=== PATIENT | female | born 1990 | race African-American/Black ===

== ENCOUNTER 2017-12-26 14:34 | Emergency (ER) | payer MEDICAID ==
[2015-09-26 12:37] VITALS: BMI 34.3
[~2017-12-26 14:34] MED LIST: HYDROCODONE-APA1 TAB PO; IBUPROFEN600 MG PO; PRENATAL COMPLE1 TAB PO
[2017-12-26 15:52] LABS: APPEARANCE HAZY (CLEAR); BILIRUBIN NEGATIVE (NEGATIVE); COLOR AMBER (YELLOW); GLUCOSE NEGATIVE (NEGATIVE); KETONE NEGATIVE (NEGATIVE); NITRITE NEGATIVE (NEGATIVE); PROTEIN NEGATIVE (NEGATIVE); SPECIFIC GRAVITY 1.015 (1.005-1.020); UROBILINOGEN NORMAL (NORMAL)
[2017-12-26 15:53] LABS: HCG URINE POSITIVE (NEGATIVE)
== END 2017-12-26 18:15 | disposition home or self-care (01) ==
LOC: D.ER 14:34
PROVIDERS: Family Medicine
DX: O26.891 Other specified pregnancy related conditions, first trimester (principal); Z3A.01 Less than 8 weeks gestation of pregnancy; R42 Dizziness and giddiness; F17.200 Nicotine dependence, unspecified, uncomplicated

== ENCOUNTER 2018-01-20 10:50 | Emergency (ER) | payer MEDICAID ==
[2015-09-26 12:37] VITALS: BMI 34.3
[2018-01-20 11:42] LABS: BASOPHILS 0.1 % (0-2); EOSINOPHILS 0.3 % (0-7); HEMATOCRIT 37.4 % (36.0-48.0); HEMOGLOBIN 12.9 g/dL (12-16); IMMATURE GRANULOCYTES 0.1 % (0-5); LYMPHOCYTES 30.2 % (15-50); MCH 30.9 pg (26.0-34.0); MCHC 34.5 g/dL (31.0-37.0); MCV 89.7 fL (80.0-100.0); MEAN PLATELET VOLUME 9.4 fL (7.4-10.4); MONOCYTES 6.4 % (2-11); NEUTROPHILS 62.9 % (40-80); PLATELET COUNT 221 10x3/uL (130-400); RBC 4.17 10x6/uL (4.00-5.40); RDW 12.8 % (11.5-14.5); WBC 9.7 10x3/uL (4.8-10.8)
[2018-01-20 12:03] LABS: HCG SERUM POSITIVE (NEGATIVE)
== END 2018-01-20 12:13 | disposition home or self-care (01) ==
LOC: D.ER 10:50
PROVIDERS: Emergency Medicine
DX: O20.9 Hemorrhage in early pregnancy, unspecified (principal); Z3A.14 14 weeks gestation of pregnancy; F17.200 Nicotine dependence, unspecified, uncomplicated

== ENCOUNTER → 2018-04-26 11:25 | Outpatient (CLI) | payer MEDICAID ==
[2015-09-26 12:37] VITALS: BMI 34.3
[~2018-04-26 11:25] MED LIST changes: +ULTRAM50 MG PO
== END | disposition home or self-care (01) ==
LOC: D.LDO 11:25
DX: O36.8320 Maternal care for abnormalities of the fetal heart rate or rhythm, second trimester, not applicable or unspecified (principal); Z3A.23 23 weeks gestation of pregnancy

== ENCOUNTER → 2018-05-10 09:50 | Outpatient (CLI) | payer MEDICAID ==
[2015-09-26 12:37] VITALS: BMI 34.3
== END | disposition home or self-care (01) ==
LOC: D.LDO 09:50
DX: O76 Abnormality in fetal heart rate and rhythm complicating labor and delivery (principal); Z3A.25 25 weeks gestation of pregnancy

== ENCOUNTER → 2018-06-18 17:03 | Outpatient (CLI) | payer MEDICAID ==
[2015-09-26 12:37] VITALS: BMI 34.3
[2018-06-18 18:17] LABS: APPEARANCE CLEAR (CLEAR); BILIRUBIN NEGATIVE (NEGATIVE); COLOR YELLOW (YELLOW); GLUCOSE NEGATIVE (NEGATIVE); KETONE NEGATIVE (NEGATIVE); NITRITE NEGATIVE (NEGATIVE); PROTEIN NEGATIVE (NEGATIVE); UROBILINOGEN NORMAL (NORMAL)
== END | disposition home or self-care (01) ==
LOC: D.LDO 17:03
PROVIDERS: Obstetrics & Gynecology
DX: O26.899 Other specified pregnancy related conditions, unspecified trimester (principal); Z3A.00 Weeks of gestation of pregnancy not specified; R10.9 Unspecified abdominal pain

== ENCOUNTER 2018-07-09 19:48 | Inpatient (IN) | payer MEDICAID ==
[~2018-07-09] VITALS: Ht 165.1 cm; Wt 97.5 kg
[2018-07-09 20:20] LABS: APPEARANCE CLEAR (CLEAR); BILIRUBIN NEGATIVE (NEGATIVE); COLOR YELLOW (YELLOW); GLUCOSE NEGATIVE (NEGATIVE); KETONE NEGATIVE (NEGATIVE); NITRITE NEGATIVE (NEGATIVE); PROTEIN NEGATIVE (NEGATIVE); UROBILINOGEN NORMAL (NORMAL)
[2018-07-09 22:54] LABS: UDS - AMPHET NEGATIVE QUAL (NEGATIVE); UDS - BARB NEGATIVE QUAL (NEGATIVE); UDS - BENZO NEGATIVE QUAL (NEGATIVE); UDS - COCAINE NEGATIVE QUAL (NEGATIVE); UDS - OPIATE NEGATIVE QUAL (NEGATIVE); UDS - PCP NEGATIVE QUAL (NEGATIVE); UDS - THC NEGATIVE QUAL (NEGATIVE)
[2018-07-10] VITALS (7 sets, daily range): BP systolic 100–119; BP diastolic 53–58; Ht 165.1 cm; Wt 97.5 kg
[2018-07-10 03:08] LABS: CALC OSMOLALITY 265 mosm/kg (275-300); CALCIUM 8.1 mg/dL (8.5-10.1); CARBON DIOXIDE 23.1 mmol/L (21.0-32.0); CHLORIDE - SERUM 105 mmol/L (98-107); CREATININE - SERUM 0.3 mg/dL (0.6-1.3); GLUCOSE 125 mg/dL (74-106); POTASSIUM - SERUM 4.3 mmol/L (3.5-5.1); SODIUM 134 mmol/L (136-145); UREA NITROGEN 3 mg/dL (7-18); eGFR NON AFRICAN AMERICAN > 90 mL/min (90-120)
[2018-07-10 03:13] LABS: MAGNESIUM - SERUM 4.2 mg/dL (1.8-2.4)
== END 2018-07-10 17:50 | disposition home or self-care (01) | DRG 780 ==
LOC: D.LDO 19:48 → D.LD 21:54
PROVIDERS: Obstetrics & Gynecology
DX: O47.03 False labor before 37 completed weeks of gestation, third trimester (principal); O98.813 Other maternal infectious and parasitic diseases complicating pregnancy, third trimester; B37.49 Other urogenital candidiasis; Z3A.34 34 weeks gestation of pregnancy; O99.333 Smoking (tobacco) complicating pregnancy, third trimester; O34.219 Maternal care for unspecified type scar from previous cesarean delivery

== ENCOUNTER → 2018-07-12 12:46 | Outpatient (CLI) | payer MEDICAID ==
[2018-07-10 01:45] VITALS: BMI 35.8
[~2018-07-12 12:46] MED LIST changes: +PERCOCET 7.5/321 TAB PO
== END | disposition home or self-care (01) ==
LOC: D.LDO 12:46
DX: O36.8130 Decreased fetal movements, third trimester, not applicable or unspecified (principal); Z3A.34 34 weeks gestation of pregnancy

== ENCOUNTER → 2018-07-15 12:22 | Outpatient (CLI) | payer SELFPAY ==
[2018-07-10 01:45] VITALS: BMI 35.8
== END | disposition home or self-care (01) ==
LOC: D.LDO 12:22
DX: O26.893 Other specified pregnancy related conditions, third trimester (principal); Z3A.35 35 weeks gestation of pregnancy

== ENCOUNTER 2018-08-10 20:01 | Outpatient (CLI) | payer MEDICAID ==
[2018-07-10 01:45] VITALS: BMI 35.8
[~2018-08-10 20:01] MED LIST changes: -PERCOCET 7.5/321 TAB PO
[2018-08-10 21:02] LABS: APPEARANCE CLEAR (CLEAR); COLOR YELLOW (YELLOW)
[2018-08-10 21:03] LABS: BILIRUBIN NEGATIVE (NEGATIVE); GLUCOSE NEGATIVE (NEGATIVE); KETONE NEGATIVE (NEGATIVE); NITRITE NEGATIVE (NEGATIVE); PROTEIN NEGATIVE (NEGATIVE); UROBILINOGEN NORMAL (NORMAL)
== END 2018-08-10 22:22 ==
LOC: D.LDO 20:01 → D.LABREF 20:01 → D.LDO 22:22
PROVIDERS: Obstetrics & Gynecology
DX: O26.893 Other specified pregnancy related conditions, third trimester (principal); Z3A.38 38 weeks gestation of pregnancy

== ENCOUNTER 2018-08-13 05:50 | Inpatient (IN) | payer MEDICAID ==
[2018-08-13] VITALS (17 sets, daily range): BP systolic 109–130; BP diastolic 60–86; Ht 165.1 cm; Wt 98.9 kg
[~2018-08-13] VITALS: Ht 165.1 cm; Wt 98.9 kg
--- NOTE | ~2018-08-13 | DS ---
PATIENT:DEANNE ALAMO :89 MEDICAL RECORD: [id number] DISCHARGE SUMMARY ADMISSION DATE: 08/13/18 DISCHARGE DATE: 08/15/18 DATE OF ADMISSION: 08/13/2018 HISTORY: A 28-year-old at 39 weeks and 1 day, admitted for repeat and tubal sterilization. The patient was noted to be B positive, group B strep positive, and rubella immune. PAST MEDICAL HISTORY: Significant for: 1. Preeclampsia and a previous . 2. Daily smoker. 3. Positive group B strep. 4. History of arrhythmia. 5. The patient also reported history of chronic hypertension. PAST SURGICAL HISTORY: Significant for as noted in 2014. ALLERGIES: The patient reported no allergies. MEDICATIONS: Included vitamins. FAMILY HISTORY: The patient reported no significant family history other than hypertension in a parent and a sibling. SOCIAL HISTORY: Significant for being a daily user of tobacco and an occasionally user of marijuana. PHYSICAL EXAMINATION: VITAL SIGNS: On admission were stable. The patient was normotensive and afebrile. LUNGS: Clear to auscultation. CARDIOVASCULAR: Regular rate and rhythm. PELVIC: Uterus was appropriately sized and nontender. EXTREMITIES: Lower extremities are free of Homans sign. assessment was a category 1 tracing. The patient also noted to be having regular uterine contractions. LABORATORY DATA: Admit hemoglobin was found to be 10.3 with a platelet count of 249. ASSESSMENT AND PLAN ON ADMISSION: 1. Term intrauterine at 39 weeks. 2. History of previous section. 3. Positive group B strep. 4. Positive for smoking. 5. History of arrhythmia during the . 6. History of labor. 7. History of chronic hypertension. Plan at that time, repeat low transverse section and tubal ligation. Risks and benefits were explained. The patient voiced understanding and DISCHARGE SUMMARY REPORT [id number] DEANNE ALAMO consent. wellbeing was reassuring with a category 1 tracing. Repeat and tubal ligation were performed. Operative report is as dictated. The patient did well overnight on postop day #0, on Dilaudid SLASHER RUNNER, IV Toradol, IV fluids, tolerating clear liquid diet. Urine output was adequate and Quan catheter remained in overnight. SCDs were on and functioning appropriately. On the morning of postoperative day #1, the patient continued to do well. Vital signs were stable. The patient was afebrile and normotensive. Incision was clean, dry and intact. Uterus was infraumbilical and appropriately tender. Lower extremities were free of Homans sign. Postop hemoglobin was found to be stable. The patient was advanced at this time to general diet and p.o. pain meds. Quan catheter was discontinued and ambulation begun. The patient continued to improve during the day and overnight on postop day #1. On postop day #2, the patient was reporting inadequate pain control overnight and the patient was switched to Percocet, which improved her pain. The patient was then discharged home on postop day #2 with instructions to follow up in the office for staple removal. TRANSINT:[id number] Voice Confirmation ID: [id number] DOCUMENT ID: [id number] DANIELLE AUGUSTIN MD at 1450 CC: [id number] DICTATION DATE: 09/11/18708 REPAIR OPERATOR: 09/11/18 2157 DIS IN 08/15/18 [id number] [place] [address]
--- NOTE | ~2018-08-13 | OP ---
PATIENT NAME: DEANNE ALAMO MEDICAL RECORD: [id number] :89 LOCATION:[facility]1273 ADMISSION DATE:08/13/18 SURGEON: DAVID HAMPTON MD DATE OF OPERATION: 08/13/2018 PREOPERATIVE DIAGNOSES: 1. Term intrauterine at 39 weeks. 2. History of previous section. POSTOPERATIVE DIAGNOSES: 1. Term intrauterine at 39 weeks. 2. History of previous section. PROCEDURE: A repeat low transverse section and a bilateral partial salpingectomy. SURGEON: David Hampton MD ESTIMATED BLOOD LOSS: 1000 cc. ANESTHESIA: Regional via spinal. INTRAVENOUS FLUIDS: Per anesthesia record. FINDINGS: One viable infant, Apgars 9 at 1 and 9 at 5. Placenta delivered manually intact, 3-vessel cord noted. Grossly normal appearing adnexa bilaterally. COMPLICATIONS: None apparent. PROCEDURE IN DETAIL: The patient was taken to the operating room where regional anesthesia was achieved without difficulty. The patient was then prepped and draped in normal sterile fashion in the dorsal supine position. A Quan catheter had been placed and was draining freely. SCDs were on and functioning appropriately. The patient was prepped and draped and a Pfannenstiel skin incision was made, extended downward to the underlying subcutaneous fat to the level of the fascia. The fascia was then excised in the midline with scalpel and the fascial incision extended bilaterally using the Lopez scissors. Superior and inferior aspect of the fascial incision were then grasped with Veto clamps times 2, tented upward, and sharply dissected from the underlying rectus muscle using the Lopez scissors and the Bovie cautery. At this point, the rectus muscles were bluntly in the midline and the peritoneum was entered sharply at the superior aspect of the incision using the Metzenbaum scissors. The peritoneal incision was then extended bilaterally using the Metzenbaum scissors and direct visualization of the bladder. Several adhesions were then dissected using the Metzenbaum scissors between the bladder and the uterus. A bladder flap was created by excising the anterior leaf of the broad ligament across the lower uterine segment. The bladder was dissected downward and a bladder blade was placed into the pelvis. Low transverse incision was made and the uterus was entered bluntly using a finger. The uterine incision was then extended using the Pelosi method. The infant was delivered vertex atraumatically and was bulb suctioned at delivery. Cord was clamped times 2, cut, and then was handed to the awaiting nursery team. The placenta was then delivered manually intact, 3-vessel cord was noted. The uterus was exteriorized, cleared of all clots and debris and vigorously massaged until good OPERATIVE REPORT [id number] ALEXMACIELDEANNE uterine tone was noted. The uterine incision was then repaired with 0 Vicryl in a running locked fashion times 2 with good hemostasis noted. The posterior cul-de-sac was then thoroughly irrigated and the adnexa were examined. The fimbriated portion of the end were found to be adherent to the uterine vessels. At this point, decision was made to proceed with tubal ligation via modified Uchida procedure. A defect was made in the bilateral mesosalpinx approximately at the mid portion of the fallopian tube. Two Adriana clamps were then placed across the tube into the defect into the mesosalpinx. A section of fallopian tube was then removed bilaterally and the excised ends of the proximal and distal fallopian tube were then oversewn with 2-0 Vicryl times 2 with good hemostasis noted. The uterus was then replaced into the pelvis. Anterior cul-de-sac was then thoroughly irrigated. Good hemostasis was again noted from all surgical sites. Counts were correct times 2 for needles, sponges, and instruments. The fascia was then repaired with 0 loop PDS times 1 and the skin repaired with val. The patient tolerated the procedure well, transferred to postanesthesia recovery stable without incident. TRANSINT:[id number] Voice Confirmation ID: [id number] DOCUMENT ID: [id number] DAVID HAMPTON MD at 1450 CC: [id number] DICTATION DATE: 09/11/18 07 APARTMENT LEASING SPECIALIST: 09/11/18 0750 DIS IN 08/15/18 [facility] [address] [id number]
[2018-08-13 06:29] LABS: HEMATOCRIT 30.1 % (36.0-48.0); HEMOGLOBIN 10.3 g/dL (12-16); MCH 29.6 pg (26.0-34.0); MCHC 34.2 g/dL (31.0-37.0); MCV 86.5 fL (80.0-100.0); MEAN PLATELET VOLUME 9.6 fL (7.4-10.4); RBC 3.48 10x6/uL (4.00-5.40); RDW 13.1 % (11.5-14.5); WBC 8.2 10x3/uL (4.8-10.8)
[2018-08-13 06:34] LABS: APPEARANCE CLOUDY (CLEAR); BILIRUBIN NEGATIVE (NEGATIVE); COLOR YELLOW (YELLOW); EPITHELIAL CELLS OCC /hpf (0-5); GLUCOSE NEGATIVE (NEGATIVE); KETONE NEGATIVE (NEGATIVE); NITRITE NEGATIVE (NEGATIVE); PROTEIN NEGATIVE (NEGATIVE); RED CELLS - URINE NONE SEEN /hpf (0-5); SPECIFIC GRAVITY 1.015 (1.005-1.020); UROBILINOGEN NORMAL (NORMAL); WHITE CELLS - URINE NSEEN /hpf (0-5)
[2018-08-13 09:46] LABS: BASOPHILS 0.1 % (0-2); EOSINOPHILS 0.9 % (0-7); HEMATOCRIT 32.7 % (36.0-48.0); HEMOGLOBIN 11.1 g/dL (12-16); IMMATURE GRANULOCYTES 0.5 % (0-5); MCH 29.6 pg (26.0-34.0); MCHC 33.9 g/dL (31.0-37.0); MCV 87.2 fL (80.0-100.0); MEAN PLATELET VOLUME 9.7 fL (7.4-10.4); MONOCYTES 10.7 % (2-11); NEUTROPHILS 60.8 % (40-80); PLATELET COUNT 235 10x3/uL (130-400); RBC 3.75 10x6/uL (4.00-5.40); RDW 12.9 % (11.5-14.5); WBC 9.5 10x3/uL (4.8-10.8)
[2018-08-14 03:00] VITALS: BP 111/56
[2018-08-14 06:14] LABS: RAPID PLASMA REAGIN Non Reactive (Non Reactive)
[2018-08-14 07:46] VITALS: BP 145/68
[2018-08-14 13:11] VITALS: BP 121/58
[2018-08-14 18:44] LABS: BASOPHILS 0.1 % (0-2); EOSINOPHILS 0.7 % (0-7); HEMATOCRIT 27.2 % (36.0-48.0); HEMOGLOBIN 9.2 g/dL (12-16); IMMATURE GRANULOCYTES 0.2 % (0-5); MCH 29.4 pg (26.0-34.0); MCHC 33.8 g/dL (31.0-37.0); MCV 86.9 fL (80.0-100.0); MEAN PLATELET VOLUME 9.5 fL (7.4-10.4); MONOCYTES 8.6 % (2-11); NEUTROPHILS 61.4 % (40-80); PLATELET COUNT 216 10x3/uL (130-400); RBC 3.13 10x6/uL (4.00-5.40); RDW 12.9 % (11.5-14.5); WBC 8.4 10x3/uL (4.8-10.8)
[2018-08-14 20:17] VITALS: BP 122/66
[2018-08-15] MEDS ORDERED: PERCOCET 7.5/321 TAB PO (11:51)
== END 2018-08-15 13:30 | disposition home or self-care (01) | DRG 784 ==
LOC: D.LD 05:50 → D.SDCHOLD 07:30 → D.LD 08-15 13:30
PROVIDERS: Obstetrics & Gynecology
PROC: 0UB70ZZ Excision of Bilateral Fallopian Tubes, Open Approach (ICD-10-PCS; principal; 2018-08-13 07:30)
PROC: 10D00Z1 Extraction of Products of Conception, Low, Open Approach (ICD-10-PCS; 2018-08-13 07:30)
DX: O34.211 Maternal care for low transverse scar from previous cesarean delivery (principal); O98.813 Other maternal infectious and parasitic diseases complicating pregnancy, third trimester; O99.334 Smoking (tobacco) complicating childbirth; Z3A.39 39 weeks gestation of pregnancy; Z37.0 Single live birth; O76 Abnormality in fetal heart rate and rhythm complicating labor and delivery; O99.824 Streptococcus B carrier state complicating childbirth; Z30.2 Encounter for sterilization; Z30.09 Encounter for other general counseling and advice on contraception